=== PATIENT | female | born 1985 | race African-American/Black ===

== ENCOUNTER 2019-07-06 00:49 | Emergency (ER) | payer BC, OTHER ==
[2019-07-06 01:24] VITALS: BP 132/75; PULSE 77; TEMP 98.1; BMI 25.4
--- NOTE | 2019-07-06 02:45 | PDOC ---
History of Present Illness - General Chief Complaint: Pain, Acute Stated Complaint: ABD PAIN Time Seen by Provider: 07/06/19 02:45 History Source: Patient Exam Limitations: No Limitations - History of Present Illness Initial Comments: 07/06/19 03:01 34yF w PMHx recent D&E (06/30/19) presenting w 6d mild constant periumbilical pain, vaginal spotting, pain w urination, and 1d dyspnea. Has D&E done for termination of fetus w brain anomaly at 21wks. Saw PCP yesterday, attributed dyspnea to breast engorgement, DC w doxycycline. OBGYN [place] Past History - Past Medical History Allergies/Adverse Reactions: Allergies Allergy/AdvReac Type Severity Reaction Status Date / Time No Known Allergies Allergy Verified 07/06/19 01:18 Home Medications: Ambulatory Orders No Home Medications 0 dose .ROUTE UTDICT 02/23/12 - Psycho Social/Smoking Cessation Hx Smoking Status: No Smoking History: Never smoked Have you smoked in the past 12 months: No Number of Cigarettes Smoked Daily: 0 Information on smoking cessation initiated: No Hx Alcohol Use: No Drug/Substance Use Hx: No Review of Systems - Review of Systems Constitutional: No: Chills, Fever HEENTM: No: Eye Pain, Nose Pain Respiratory: Yes: Shortness of Breath. No: Cough Cardiac (ROS): No: Chest Pain, Palpitations, Syncope ABD/GI: No: Abdominal Distended, Constipated, Diarrhea, Nausea, Vomiting : Yes: Dysuria. No: Burning Musculoskeletal: No: Back Pain, Joint Pain Integumentary: No: Bruising, Flushing Neurological: No: Headache, Seizure Psychiatric: No: Anxiety, Depression Endocrine: No: Intolerance to Cold, Intolerance to Heat Hematologic/Lymphatic: No: Anemia, Blood Clots *Physical Exam - Vital Signs Last Vital Signs Temp Pulse Resp BP Pulse Ox 98.1 F 77 20 132/75 99 07/06/19 01:19 07/06/19 01:19 07/06/19 01:19 07/06/19 01:19 07/06/19 01:19 - Physical Exam General Appearance: Yes: Nourished, Appropriately Dressed, Mild Distress HEENT: positive: EOMI, CHARLIE, Normal Voice, Hearing Grossly Normal. negative: Scleral Icterus (R), Scleral Icterus (L) Respiratory/Chest: positive: Lungs Clear, Normal Breath Sounds. negative: Chest Tender, Respiratory Distress, Crackles, Rales, Rhonchi, Stridor, Wheezing Cardiovascular: positive: Regular Rhythm, Regular Rate, S1, S2. negative: Edema , Murmur Gastrointestinal/Abdominal: positive: Normal Bowel Sounds, Tender (periumbilical ), Soft, Distended (mild). negative: Organomegaly Musculoskeletal: negative: CVA Tenderness (R), CVA Tenderness (L) Extremity: positive: Normal Capillary Refill Integumentary: positive: Normal Color. negative: Dry Neurologic: positive: wage and salary administrator II-XII NML intact, Fully Oriented, Alert, Normal Mood/ Affect, Normal Response, Responsive. negative: Sensory Deficit, Confused, Disoriented ED Treatment Course - LABORATORY CBC & Chemistry Diagram: 07/06/19 03:17 07/06/19 03:17 Medical Decision Making - Medical Decision Making 07/06/19 03:06 EKG NSR HR 67, QTc 405, no ST changes CXR - clear lung florentino, normal heart size Pelvic exam - old brown blood in vault, closed os, no cervical/adnexal tenderness d-dimer 1297 --- 34yF w PMHx recent D&E (06/30/19) presenting w 6d periumbilical pain, vaginal spotting, dysuria, and 1d dyspnea. UTI vs PE (+d-dimer). Low concern for PNA (clear lungs) vs endometritis ( afebrile, normal white count) vs pancreatitis (normal lipase) Given tylenol Anticipate DC home - pending UA (sent already), chest CTA r/o PE Signed out to day team Discharge - Discharge Information Problems reviewed: Yes Clinical Impression/Diagnosis: Dyspnea Qualifiers: Dyspnea type: shortness of breath Qualified Code(s): R06.02 - Shortness of breath; R06.00 - Dyspnea, unspecified; R06.01 - Orthopnea Abdominal pain Qualifiers: Abdominal location: periumbilical Qualified Code(s): R10.33 - Periumbilical pain Condition: Good - Follow up/Referral Referrals: Pau Carvalho MD [Primary Care Provider] - - Patient Discharge Instructions - Post Discharge Activity
[2019-07-06] MEDS ORDERED: ACETAMINOPHEN 1000 MG/100 ML VIAL (NON FORMULARY) IVPB ONE (03:02)
[2019-07-06] MEDS ORDERED: ACETAMINOPHEN INJECTION 100 ML IVPB ONE (03:20)
[2019-07-06 04:18] LABS: BASO % 0.9 % (0-2.0); EOS % 2.3 % (0-4.5); HEMATOCRIT 37.1 % (32.4-45.2); HEMOGLOBIN 12.8 GM/dL (10.7-15.3); LYMPH % 22.5 % (8-40); MCH 32.6 pg (25.7-33.7); MCHC 34.5 g/dl (32.0-36.0); MEAN CELL VOLUME 94.4 fl (80-96); MEAN PLT VOLUME 9.4 fl (7.5-11.1); MONO % 5.5 % (3.8-10.2); NEUT % 68.8 % (42.8-82.8); PLATELET COUNT 272 K/MM3 (134-434); RBC 3.93 M/mm3 (3.60-5.2); RDW 12.9 % (11.6-15.6); WHITE BLOOD COUNT 8.5 K/mm3 (4.0-10.0)
--- NOTE | 2019-07-06 04:24 | PDOC ---
Attending Attestation - Resident Resident Name: Mark,Rigoberto - ED Attending Attestation I have performed the following: I have examined & evaluated the patient, The case was reviewed & discussed with the resident, I agree w/resident's findings & plan, Exceptions are as noted - HPI HPI: 07/06/19 07:20 See resident HPI - Physicial Exam PE: 07/06/19 07:20 Agree with documented exam - Medical Decision Making 07/06/19 07:21 34F with very recent D&E a/w moderate cramping and scant, brown, vaginal spotting, no clots, no odor, no fever, now c/o 1 day of dyspnea hx,pe inconsistent with endometritis, RPOC consider PE, low risk strata cannot PERC f/u labs including d-dimer d-dimer 1300 f/u cta pe dispo per clinical course
[2019-07-06 04:44] LABS: ALBUMIN 3.2 g/dl (3.4-5.0); BILIRUBIN,TOTAL 0.2 mg/dL (0.2-1); BLOOD UREA NITROGEN 8.9 mg/dL (7-18); CALCIUM 8.6 mg/dL (8.5-10.1); CREATININE 0.5 mg/dL (0.55-1.3); POTASSIUM 4.1 mmol/L (3.5-5.1)
[2019-07-06 06:35] LABS: INR 0.98 (0.83-1.09); PROTHROMBIN TIME (PATIENT) 11.6 SEC (9.7-13.0)
--- NOTE | 2019-07-06 07:36 | PDOC ---
*Physical Exam - Vital Signs Last Vital Signs Temp Pulse Resp BP Pulse Ox 98.1 F 77 20 132/75 99 07/06/19 01:19 07/06/19 01:19 07/06/19 01:19 07/06/19 01:19 07/06/19 01:19 ED Treatment Course - LABORATORY CBC & Chemistry Diagram: 07/06/19 03:17 07/06/19 03:17 - ADDITIONAL ORDERS Additional order review: Laboratory Results 07/06/19 07/06/19 07/06/19 03:17 03:17 03:17 PT with INR 11.60 INR 0.98 D-Dimer 1297 H Sodium 142 Potassium 4.1 Chloride 109 H Carbon Dioxide 26 Anion Gap 7 L BUN 8.9 Creatinine 0.5 L Est GFR (CKD-EPI)AfAm 146.35 Est GFR (CKD-EPI)NonAf 126.27 Random Glucose 97 Calcium 8.6 Total Bilirubin 0.2 AST 25 ALT 41 Alkaline Phosphatase 92 Total Protein 7.0 Albumin 3.2 L Lipase 104 07/06/19 03:17 RBC 3.93 MCV 94.4 MCHC 34.5 RDW 12.9 MPV 9.4 Neutrophils % 68.8 Lymphocytes % 22.5 Monocytes % 5.5 Eosinophils % 2.3 Basophils % 0.9 - Medications Given in the ED: ED Medications Discontinued Medications Generic Name Dose Route Start Last Admin Trade Name Yovaniq PRN Reason Stop Dose Admin Acetaminophen 1,000 mg 07/06/19 03:02 07/06/19 03:56 Ofirmev Injection - IVPB 07/06/19 03:03 1,000 mg ONCE ONE Administration Medical Decision Making - Medical Decision Making 07/06/19 07:35 sign out from night team 34yF w PMHx recent D&E (06/30/19) presenting w 6d mild constant periumbilical pain, vaginal spotting, pain w urination, and 1d dyspnea. Has D&E done for termination of fetus w brain anomaly at 21wks. Saw PCP yesterday, attributed dyspnea to breast engorgement labs show elevated d-dimer pending CTA. pending UA. 07/06/19 07:36 07/06/19 09:13 pt seen ambulating, not tachypenic, not tachycardic. CT negative for PE. UA negative for infection. pt can make appointment with covering client insights consultant on Tuesday. blood work negative for infection. can dc home. given return precautions. Discharge - Discharge Information Problems reviewed: Yes Clinical Impression/Diagnosis: Dyspnea Qualifiers: Dyspnea type: shortness of breath Qualified Code(s): R06.02 - Shortness of breath Abdominal pain Qualifiers: Abdominal location: periumbilical Qualified Code(s): R10.33 - Periumbilical pain Condition: Good - Admission No - Follow up/Referral Referrals: Pau Carvalho MD [Primary Care Provider] - - Patient Discharge Instructions Additional Instructions: Your blood work does not show signs of infection and the CT scan results were provided to you, it is normal. I recommend following up with the OB office on Tuesday. For the pain I recommend ibuprofen or Advil and for the engorgement I recommend ice packs. Please come back to the ER if you have worsening cramping, foul smelling discharge, fever or if any new or concerning symptom develops. Thank you - Post Discharge Activity
[2019-07-06 08:56] LABS: EPI CELLS 1.3 /HPF (0-5/HPF); HYALINE CASTS 1 /lpf (0-8); PH,URINE 7.5 (5.0-8.0); URINE APPEARANCE CLEAR; URINE BACTERIA 7.9 /hpf (NEGATIVE); URINE BILIRUBIN NEGATIVE (NEGATIVE); URINE COLOR YELLOW; URINE GLUCOSE (UA) NEGATIVE (NEGATIVE); URINE KETONE NEGATIVE (NEGATIVE); URINE LEUK ESTERASE NEGATIVE (NEGATIVE); URINE NITRITE NEGATIVE (NEGATIVE); URINE PROTEIN NEGATIVE (NEGATIVE); URINE RBC 4 /hpf (0-4); URINE UROBILINOGEN 0.2 mg/dL (0.2-1.0); URINE WBC 1 /hpf (0-5)
--- NOTE | 2019-07-06 10:58 | EKG ---
Test Reason : Blood Pressure : / mmHG Vent. Rate : 067 BPM Atrial Rate : 067 BPM P-R Int : 126 ms QRS Dur : 080 ms QT Int : 384 ms P-R-T Axes : 058 055 040 degrees QTc Int : 405 ms NORMAL SINUS RHYTHM NORMAL ECG NO PREVIOUS ECGS AVAILABLE Confirmed by MIGDALIA TOWNSEND MD ([id number]) on 07/06/2019 10:58:42 AM Referred By: Confirmed By:MIGDALIA TOWNSEND MD
== END 2019-07-06 09:15 | disposition home or self-care (01) ==
LOC: JER 00:49
PROC: 3E033NZ Introduction of Analgesics, Hypnotics, Sedatives into Peripheral Vein, Percutaneous Approach (ICD-10-PCS; principal; 2019-07-06)
DX: R10.33 Periumbilical pain (principal); R06.00 Dyspnea, unspecified; Z98.890 Other specified postprocedural states; Z87.59 Personal history of other complications of pregnancy, childbirth and the puerperium
CPT/HCPCS: 36415; 71046-TC-FY; 71275-TC; 80053; 81003; 83690; 85025; 85379; 85610; 87086; 93005; 93010; 99285-25; J0131; Q9967